=== PATIENT | female | born 1980 | race Caucasian/White ===

== ENCOUNTER 2019-05-14 15:09 | Emergency (ER) | payer OTHER ==
[2019-05-14 15:18] VITALS: BP 140/89; PULSE 84; TEMP 98.3; BMI 32.2
[2019-05-14] MEDS ORDERED: ALBUTEROL SO4 2.5/IPRATROPIUM 0.5 INH SOL 3 ML VIAL.NEB. NEB ONE (15:32)
[2019-05-14] MEDS: ALBUTEROL SO4 2.5/IPRATROPIUM 0.5 INH SOL 3 ML VIAL.NEB. NEB SCH ×3 (15:34→16:03)
--- NOTE | 2019-05-14 15:40 | PDOC ---
History of Present Illness - General Chief Complaint: Respiratory Stated Complaint: COLD SYMPTOMS Time Seen by Provider: 05/14/19 15:21 History Source: Patient Exam Limitations: No Limitations Past History - Past Medical History Allergies/Adverse Reactions: Allergies Allergy/AdvReac Type Severity Reaction Status Date / Time No Known Allergies Allergy Verified 05/14/19 15:18 Home Medications: Ambulatory Orders NK [No Known Home Medication] 05/14/19 Anemia: Yes COPD: No - Psycho Social/Smoking Cessation Hx Smoking History: Never smoked *Physical Exam - Vital Signs Last Vital Signs Temp Pulse Resp BP Pulse Ox 98.3 F 84 18 140/89 100 05/14/19 15:14 05/14/19 15:14 05/14/19 15:14 05/14/19 15:14 05/14/19 15:14 - Physical Exam General Appearance: No: Apparent Distress HEENT: positive: Pharynx Normal. negative: Muffled/Hoarse voice, Pharyngeal Erythema, Tonsillar Exudate, Tonsillar Erythema Respiratory/Chest: positive: Wheezing (mild wheezing). negative: Respiratory Distress, Accessory Muscle Use, Labored Respiration Gastrointestinal/Abdominal: positive: Normal Bowel Sounds, Soft. negative: Tender, Distended, Guarding, Rebound Integumentary: positive: Normal Color Neurologic: positive: Alert Medical Decision Making - Medical Decision Making 38-year-old female history of anemia and thyroid disease presents with body aches, congestion, runny nose, cough for 2 days. Mentions having sick contacts at work. Took Motrin at 9 AM. Denies fever, shortness of breath, chest pain, abdominal pain, nausea, vomiting, diarrhea, recent travel. Likely bronchitis Given duo nebs Will reassess after duonebs 05/14/19 15:38 patient feeling better after meds lungs clear stable for dc 05/14/19 16:05 Discharge - Discharge Information Problems reviewed: Yes Clinical Impression/Diagnosis: Bronchitis Condition: Stable Disposition: HOME - Admission No - Additional Discharge Information Prescription Drug Monitoring Program (I-STOP) results: I-STOP not reviewed - Follow up/Referral Referrals: Cyndy Mooney MD [Primary Care Provider] - 2 Days - Patient Discharge Instructions Patient Printed Discharge Instructions: DI for Acute Bronchitis Additional Instructions: Thank you for choosing Health system. It was a pleasure taking care of you. Take Albuterol as needed for wheezing Recommend following up with your doctor in 2 days Return to the Emergency Department if your symptoms worsen or persist or have other concerning symptoms. - Post Discharge Activity
== END 2019-05-14 16:17 | disposition home or self-care (01) ==
LOC: JERFT 15:09
PROC: 3E0F7GC Introduction of Other Therapeutic Substance into Respiratory Tract, Via Natural or Artificial Opening (ICD-10-PCS; principal; 2019-05-14)
DX: J40 Bronchitis, not specified as acute or chronic (principal); D64.9 Anemia, unspecified; E07.9 Disorder of thyroid, unspecified
CPT/HCPCS: 94640; 99281-25